=== PATIENT | female | born 2000 | race Two or more races ===

== ENCOUNTER 2020-03-05 22:23 | Emergency (ER) | payer BC, MEDICAID ==
[~2020-03-05] VITALS: Ht 160 cm; Wt 68.0 kg
[2020-03-06 00:20] VITALS: BP 139/76
[2020-03-06] MEDS ORDERED: KETOROLAC TROMETH 60MG/2ML VIAL IM ONE (01:15)
== END 2020-03-06 02:37 | disposition home or self-care (01) ==
LOC: ER 22:27
DX: S46.912A Strain of unspecified muscle, fascia and tendon at shoulder and upper arm level, left arm, initial encounter (principal); M94.0 Chondrocostal junction syndrome [Tietze]; V49.9XXA Car occupant (driver) (passenger) injured in unspecified traffic accident, initial encounter; Y93.89 Activity, other specified; Y92.89 Other specified places as the place of occurrence of the external cause; Y99.8 Other external cause status
CPT/HCPCS: 70450; 71250; 72125; 72128; 74176; 96372; 99285; J1885